=== PATIENT | male | born 1965 | race Caucasian/White ===

== ENCOUNTER 2020-11-27 18:58 | Observation (INO) | payer OTHER ==
[~2020-11-27 18:58] MED LIST: Iopamidol-370 76% 500 ML 1 ML ONE
[2020-11-27 19:33] LABS: Bilirubin Negative (Negative); Blood, Urine Negative (Negative); Clarity Clear (Clear); Glucose, Urine (Dipstick) Normal (Negative); Ketone, Urine Negative (Negative); Leukocyte Negative Leu/uL (Negative); Nitrite Negative (Negative); Protein, Urine (Dipstick) Negative (Neg-Trace); Specific Gravity, Urine 1.003 (1.002-1.036); Urobilinogen Normal mg/dL (Less than 2)
[2020-11-27 19:35] LABS: #Lymphocytes 1.9 thou/uL (1.20-3.40); #Monocytes 0.5 thou/uL (0.11-0.59); #Neutrophils 2.5 thou/uL (1.40-6.50); %Basophils 0.9 % (0.0-1.0); %Eosinophils 0.5 % (0.0-10.0); %Lymphocytes 38.3 % (21.0-51.0); %Monocytes 9.7 % (0.0-10.0); %Neutrophils 50.7 % (42.0-75.0); Hemoglobin 16.1 g/dL (14.0-18.0); Mean Corpuscular HGB CONC 33.5 g/dL (32.0-36.0); Mean Corpuscular Hemoglobin 32.8 pg (27.0-31.0); Mean Corpuscular Volume 98.1 fL (78.0-98.0); Mean Platelet Volume 7.9 fL (7.4-10.4); Platelet Count 121 thou/uL (130-400); RBC Distribution Width 14.3 % (11.5-14.5); Red Blood Cell (RBC) Count 4.92 mill/uL (4.70-6.10); White Blood Cell (WBC) Count 4.8 thou/uL (4.8-10.8)
--- NOTE | 2020-11-27 19:38 | RAD ---
XR Chest 1 View Portable HISTORY: Right upper quadrant and epigastric pain COMPARISON: None FINDINGS: The heart size is normal. The lungs are well expanded without focal areas of consolidation, pneumothorax or pleural effusions. IMPRESSION: No radiographic evidence of acute cardiopulmonary process.
[2020-11-27 19:53] LABS: ALT (SGPT) 130 U/L (8-55); AST (SGOT) 268 U/L (5-34); Acetaminophen Less than 6.0 mcg/mL (10.0-30.0); Albumin 4.2 g/dL (3.5-5.0); Alcohol 361 mg/dL (Less than 10); Alkaline Phosphatase 114 U/L (40-110); Anion Gap 15 mmol/L (10-20); BUN (Urea Nitrogen) Less than 4 mg/dL (8.4-25.7); Bilirubin, Total 0.7 mg/dL (0.2-1.2); Calc. Creatinine Clearance 0 mL/min (70-130); Calcium 8.7 mg/dL (7.8-10.44); Carbon Dioxide 27 mmol/L (22-29); Chloride 101 mmol/L (98-107); Globulin 4.1 g/dL (2.4-3.5); Glucose 92 mg/dL (70-105); Potassium 3.9 mmol/L (3.5-5.1); Protein, Total 8.3 g/dL (6.0-8.3); Salicylate Less than 8.0 mg/dL (15.0-30.0); Sodium 139 mmol/L (136-145)
[2020-11-27] MEDS ORDERED: Lorazepam 2 MG/ML VIAL ONE (19:53)
[2020-11-27] MEDS ORDERED: Aspirin Chewable 81 MG TAB ONE (20:05)
[2020-11-27] MEDS ORDERED: Lidocaine Viscous Sol 2% 15 ml UD Cup ONE (20:06)
[2020-11-27] MEDS ORDERED: Magnesium 2 GM/50 ML BAG (IN WATER) ONE (20:06)
[2020-11-27] MEDS ORDERED: Mag-Al 1200 mg/1200 mg/30 ML UDCUP ONE (20:06)
[2020-11-27 20:26] LABS: PTT 31.4 sec (22.9-36.1); Prothrombin Time 13.5 sec (12.0-14.7)
[2020-11-27] MEDS ORDERED: Thiamine 100 MG TAB PO SCH (20:30)
[2020-11-27] MEDS ORDERED: Folic Acid 1 MG TAB PO SCH (20:30)
--- NOTE | 2020-11-27 22:03 | ULT ---
ULTRASOUND ABDOMEN LIMITED: (RIGHT UPPER QUADRANT) DATE: 11/27/2020 HISTORY: 55-year-old male with right upper quadrant and epigastric abdominal pain. COMPARISON: None. FINDINGS: Liver: Diffusely coarse echotexture and increased echogenicity. Common duct: 2 mm. Right kidney: No hydronephrosis. Gallbladder: Surgically absent. Pancreas: Mostly obscured by shadowing from overlying bowel gas. IMPRESSION: 1. Hepatic steatosis versus cirrhosis. 2. Status post cholecystectomy. MELODY Pearson POS: JIN
--- NOTE | 2020-11-27 22:59 | CT ---
CT PULMONARY ANGIOGRAM WITH IV CONTRAST AND 3D POSTPROCESSING: Date: 11/27/2020 HISTORY: Elevated D-Dimer. Chest pain. FINDINGS: There is good contrast opacification of the pulmonary arterial vasculature without filling defects to suggest pulmonary embolism. There are vascular calcifications without evidence of aneurysmal dilatat ion of the thoracic aorta. No pleural or pericardial effusions are seen. No pneumothoraces, lobar con solidation, or lung masses are identified. There are dependent changes in the posterior lung bases. U pper abdominal tomograms demonstrate fatty infiltration of the liver and postop changes of cholecyste ctomy. There are mild degenerative changes in the spine. IMPRESSION: No CT evidence of pulmonary embolism. POS: OFF
[2020-11-27 23:37] VITALS: BMI 19.7
[2020-11-27] MEDS ORDERED: Ondansetron PF 4 MG/2 ML Vial IVP PRN (23:53)
[2020-11-27] MEDS ORDERED: Acetaminophen 325 MG TAB PO PRN (23:53)
[2020-11-27] MEDS ORDERED: Ondansetron ODT 4 MG TAB PO PRN (23:53)
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
[2020-11-28] MEDS ORDERED: Pantoprazole 40 MG VIAL IVP SCH ×2 (00:30→21:00)
[2020-11-28] MEDS ORDERED: Diazepam 5 MG TAB PO PRN (01:17)
[2020-11-28 02:00] LABS: #Eosinphils 0.1 thou/uL (0.0-0.7); #Lymphocytes 1.5 thou/uL (1.20-3.40); #Monocytes 0.3 thou/uL (0.11-0.59); #Neutrophils 1.3 thou/uL (1.40-6.50); %Basophils 1.2 % (0.0-1.0); %Eosinophils 1.8 % (0.0-10.0); %Lymphocytes 47.2 % (21.0-51.0); %Monocytes 8.6 % (0.0-10.0); %Neutrophils 41.2 % (42.0-75.0); Hemoglobin 15.2 g/dL (14.0-18.0); Mean Corpuscular HGB CONC 33.2 g/dL (32.0-36.0); Mean Corpuscular Hemoglobin 32.2 pg (27.0-31.0); Mean Corpuscular Volume 96.8 fL (78.0-98.0); Platelet Count 105 thou/uL (130-400); RBC Distribution Width 14.3 % (11.5-14.5); Red Blood Cell (RBC) Count 4.74 mill/uL (4.70-6.10); White Blood Cell (WBC) Count 3.2 thou/uL (4.8-10.8)
[2020-11-28 02:01] LABS: Troponin I 0.011 ng/mL (< 0.028)
[2020-11-28 02:08] LABS: Anion Gap 20 mmol/L (10-20); BUN (Urea Nitrogen) Less than 4 mg/dL (8.4-25.7); Calc. Creatinine Clearance 113 mL/min (70-130); Calcium 8.2 mg/dL (7.8-10.44); Carbon Dioxide 19 mmol/L (22-29); Chloride 104 mmol/L (98-107); Glucose 71 mg/dL (70-105); Potassium 3.8 mmol/L (3.5-5.1); Sodium 139 mmol/L (136-145)
[2020-11-28 04:38] LABS: SARS-CoV-2 PCR by NAA Not Detected (NotDetected)
[2020-11-28 05:20] LABS: HBCM Index 0.05 S/CO (0-0.79); HBSAg Index 0.26 S/CO (0-0.99); Hep A IgM AB Non-Reactive (NonReactive); Hep A IgM S/CO 0.08 S/CO (0-0.79); Hep B Surf Ag Non-Reactive S/CO (NonReactive); Hep C IgG Ab Non-Reactive (NonReactive); Hep C Index 0.09 S/CO (0-0.79); Hepatitis B Core IgM Abs Non-Reactive (NonReactive)
[2020-11-28] MEDS ORDERED: FLU VACC QS2020-21(6MOS UP)/PF 60 MCG/0.5 ML SYRINGE IM ONE (09:00)
[2020-11-28] MEDS ORDERED: Folic Acid 1 MG TAB PO SCH (09:00)
[2020-11-28] MEDS ORDERED: Enoxaparin Sodium 40 MG/0.4 ML SYRINGE SC SCH (09:00)
[2020-11-28] MEDS ORDERED: Multivitamin W/ Minerals 1 TAB PO SCH (09:00)
[2020-11-28] MEDS ORDERED: Regadenoson 0.4 MG/5 ML SYRINGE ONE (09:29)
--- NOTE | 2020-11-28 15:32 | NM ---
Nuclear medicine myocardial perfusion scan: 11/28/2020 COMPARISON: None HISTORY: Atypical chest pain TECHNIQUE: SPECT imaging of the left ventricular myocardium obtained during stress and rest following the intravenous administration of 30.0 and 10.0mCi technetium 99 M labeled sestamibi respectively. FINDINGS: No discrete fixed or reversible defect. TID is 0.95. Left ventricular wall motion appears within normal limits. End-diastolic volume is 74 mL and end systolic volume is 15 mL. Left ventricular ejection fraction is estimated at 80%. This is likely artifactually elevated seconda ry to a low end systolic volume IMPRESSION: No discrete reversible defect. Normal left ventricular wall motion. Estimated LVEF of 80%. Please see above detail.
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
[2020-11-28 16:40] VITALS: BP 156/86; TEMP 98
[2020-11-29] MEDS ORDERED: Diazepam 5 MG TAB PO PRN (04:00)
[2020-11-29] MEDS ORDERED: Thiamine 100 MG TAB PO SCH (09:00)
[2020-11-29] MEDS ORDERED: Magnesium Oxide 400 MG TAB PO SCH (09:00)
== END 2020-11-28 16:40 | disposition home or self-care (01) ==
LOC: ERS 18:58 → 2NO 22:26
PROVIDERS: ADMIT Student in an Organized Health Care Education/Training Program; ATTEND Family Medicine
DX: R07.89 Other chest pain (principal); K21.9 Gastro-esophageal reflux disease without esophagitis; F41.9 Anxiety disorder, unspecified; F10.229 Alcohol dependence with intoxication, unspecified; I10 Essential (primary) hypertension; K76.0 Fatty (change of) liver, not elsewhere classified; K70.10 Alcoholic hepatitis without ascites; M25.519 Pain in unspecified shoulder; J44.9 Chronic obstructive pulmonary disease, unspecified; F17.210 Nicotine dependence, cigarettes, uncomplicated; F32.9 Major depressive disorder, single episode, unspecified; Z79.899 Other long term (current) drug therapy; Z20.822 Contact with and (suspected) exposure to COVID-19; Y90.8 Blood alcohol level of 240 mg/100 ml or more
CPT/HCPCS: 36415; 71045; 71275; 76705; 78452; 80048; 80053; 80074; 80307; 81003; 82140; 83690; 84484; 85025; 85379; 85610; 85730; 87635; 90471; 90662; 90732; 93005; 93017; 96365; 96375; A9500; C9113; G0008; G0009; G0378; J2060; J2785; J3475; Q9967; U0003; U0005

== ENCOUNTER 2020-12-26 03:16 | Emergency (ER) | payer OTHER | END 2020-12-26 22:59 | LOC: ERS 03:16 | DX: F10.129 Alcohol abuse with intoxication, unspecified (principal); R45.851 Suicidal ideations; K21.9 Gastro-esophageal reflux disease without esophagitis; J44.9 Chronic obstructive pulmonary disease, unspecified; F17.210 Nicotine dependence, cigarettes, uncomplicated; Z79.899 Other long term (current) drug therapy | CPT/HCPCS: 36415; 80307; 99285 ==